=== PATIENT | female | born 1995 | race Caucasian/White ===

== ENCOUNTER 2020-03-03 12:59 | Emergency (ER) | payer SELFPAY ==
[~2020-03-03] VITALS: Ht 170.2 cm; Wt 59.0 kg
[2020-03-03 13:27] VITALS: BP_SYST 141
--- NOTE | 2020-03-03 13:37 | NUR ---
Patient triaged and placed in waiting room. VSS and patient appears in no acute distress at this time. Awaiting available bed, and MD notified of need for MSE.
--- NOTE | 2020-03-03 15:15 | NUR ---
PATIENT COMPLAINING FO SUBSTERNAL CHEST PAIN STARTING LAST NIGHT REPORTS FEELING PRESSURE AND WITH INTERMITTENT SHARP PAINS AFTER EATING. DENIES ANY SHORTNESS OF BREATH. PAIN 2/10 REPORTS TAKING IBUPROFEN AND ANTACIDS WITH MINIMAL RELIEF. NO OTHER COMPLAINTS/INJURIES PER PATIENT OR NOTED.
--- NOTE | 2020-03-03 15:25 | NUR ---
ER DIRECTOR [employer] examining patient IN TRIAGE ROOM
[2020-03-03] MEDS ORDERED: MAG HYDROX/AL HYDROX/SIMETH 30 ML, LIDOCAINE VISCOUS 2% 15ML (PO) 10 ML, DICYCLOMINE HC... PO ONE ×3 (15:45)
--- NOTE | 2020-03-03 16:38 | NUR ---
Patient to ER chair for evaluation. Side rails up.
[2020-03-03 16:55] VITALS: BP_SYST 141
--- NOTE | 2020-03-03 16:55 | NUR ---
Patient given written and verbal discharge instructions and verbalizes understanding. ER MD discussed with patient the results and treatment provided. Patient in stable condition. ID arm band removed. Rx of omeprazole,macrobid given. Patient educated on pain management and to follow up with PMD. Pain Scale 0/10. Opportunity for questions provided and answered. Medication side effect fact sheet provided.
== END 2020-03-03 16:55 | disposition home or self-care (01) ==
LOC: SED 12:59
DX: N30.90 Cystitis, unspecified without hematuria (principal); K21.9 Gastro-esophageal reflux disease without esophagitis; R03.0 Elevated blood-pressure reading, without diagnosis of hypertension
CPT/HCPCS: 36415; 71045; 81002; 81025; 84484; 93005; 99285; J2001